=== PATIENT | male | born 1935 | race Caucasian/White ===

== ENCOUNTER 2018-07-19 11:40 | Day surgery (SDC) | payer MEDICARE | END 2018-07-19 12:55 | disposition home or self-care (01) | LOC: SDC-PAIN 11:40 | PROVIDERS: ATTEND Psychiatry & Neurology Pain Medicine | DX: Z53.09 Procedure and treatment not carried out because of other contraindication (principal) ==

== ENCOUNTER 2018-07-19 13:06 | Emergency (ER) | payer MEDICARE ==
[2018-07-19] MEDS ORDERED: Adenocard IV 6 MG/2 ML IV ONE ×2 (13:12→13:26)
[2018-07-19] MEDS ORDERED: BABY ASPIRIN 81 MG CHEW PO ONE (13:12)
[2018-07-19] MEDS ORDERED: Sodium Chloride 0.9% 1000 ML 1,000 ML IV SCH (13:15)
--- NOTE | 2018-07-19 13:18 | ERPHSYRPT ---
- History of Present Illness Time Seen by Provider: 07/19/18 13:11 Source: patient, family, old records Exam Limitations: no limitations Physician History: chele [facility] OP Surg for back pain injections when developed A fib on monitor- no symptoms-no cp or sob; not dizzy; prior hx of same; hasn;t taken meds for 2-3 days due to procedure Timing/Duration: today, hour(s) (1), sudden Activities at Onset: rest Quality: other (no symptoms) Chest Pain Radiation: no radiation Severity of Pain-Max: none Severity of Pain-Current: none Modifying Factors: Improves With: other (no meds for procedure for few days) Nitro Today/Relief: no nitro taken today Aspirin Treatment Today: no aspirin today Associated Symptoms: denies symptoms Prior Chest Pain/Cardiac Workup: cardiac cath Allergies/Adverse Reactions: No Known Drug Allergies Allergy (Unverified 07/19/18 13:22) Home Medications: Allopurinol 100 mg [Zyloprim 100 mg] 100 mg PO TID 07/19/18 [History] Apixaban [Eliquis] 5 mg PO BID 07/19/18 [History] Aspirin [Children's Aspirin] 81 mg PO DAILY 07/19/18 [History] Celecoxib [Celebrex] 200 mg PO DAILY 07/19/18 [History] Diltiazem HCl 240 mg [Cardizem CD 240 MG] 240 mg PO DAILY 07/19/18 [ History] Primidone 100 mg PO BID 07/19/18 [History] Tamsulosin HCl 0.4 mg [Flomax 0.4 MG] 0.4 mg PO DAILY 07/19/18 [History] - Review of Systems Constitutional: No Symptoms Eyes: No Symptoms Ears, Nose, & Throat: No Symptoms Respiratory: No Cough, No Dyspnea, No Wheezing Cardiac: No Chest Pain, No Edema, No Palpitations, No Syncope Abdominal/Gastrointestinal: No Abdominal Pain, No Nausea, No Vomiting, No Diarrhea Genitourinary Symptoms: No Symptoms Musculoskeletal: No Symptoms Skin: No Symptoms Neurological: No Symptoms Psychological: No Symptoms Endocrine: No Symptoms Hematologic/Lymphatic: No Symptoms Immunological/Allergic: No Symptoms - Past Medical History Pertinent Past Medical History: Yes Cardiac History: Arrhythmia, Coronary Artery Disease - Past Surgical History Past Surgical History: Yes Cardiac: Cardiac Catheterization, Cardiac Stent - Social History Smoking Status: Former smoker Exposure to second hand smoke: No Alcohol Use: None Drug Use: none Patient Lives Alone: No Significant Family History: heart disease - Nursing Vital Signs Nursing Vital Signs: Initial Vital Signs Temperature 99.0 F 07/19/18 13:08 Pulse Rate 147 H 07/19/18 13:08 Respiratory Rate 12 07/19/18 13:08 Blood Pressure 155/119 07/19/18 13:08 O2 Sat by Pulse Oximetry 95 07/19/18 13:08 Pain Scale Pain Intensity 0 - Physical Exam General Appearance: mild distress, alert Eye Exam: PERRL/EOMI, eyes nml inspection, No photophobia Ears, Nose, Throat Exam: normal ENT inspection, TMs normal, pharynx normal, moist mucous membranes Neck Exam: normal inspection, non-tender, supple, full range of motion, No meningismus, No carotid bruit, No JVD Respiratory Exam: normal breath sounds, lungs clear, airway intact, No chest tenderness, No respiratory distress, No crackles/rales, No rhonchi, No wheezing Cardiovascular Exam: normal heart sounds, normal peripheral pulses, irregular, capillary refill 2-3 sec, edema (trace), No regular rate/rhythm, No murmur, No pulse deficit Gastrointestinal/Abdomen Exam: soft, normal bowel sounds, No tenderness, No guarding, No rebound, No organomegaly Rectal Exam: deferred Back Exam: normal inspection, normal range of motion, No CVA tenderness, No vertebral tenderness, No rash Extremity Exam: normal inspection, normal range of motion, pedal edema (trace), No calf tenderness, No anastasia's sign Neurologic Exam: alert, oriented x 3, cooperative, florist II-XII nml as tested, normal mood/affect, nml cerebellar function, nml station & gait Skin Exam: normal color, warm, dry, No rash, No petechiae, No cyanosis SpO2 Interpretation: normal SpO2: 96 O2 Delivery: Room Air - Course Nursing assessment & vital signs reviewed: Yes EKG Interpreted by Me: RATE, A-fib, NORMAL AXIS, NORMAL INTERVALS, NORMAL QRS, Non-specific ST Changes, Other (a fib w RVR 136) Rhythm Strip: Rate (136), Atrial Fibrillation (w RVR 136) - Radiology Exams Chest X-ray Interpretation: Reviewed by me, Teleradiologist Report, Negative Ordered Tests: Active Orders 24 hr Category Date Time Status Marble Setter Helper STAT Care 07/19/18 13:12 Active EKG-ER Only STAT Care 07/19/18 13:12 Active IV Insertion STAT Care 07/19/18 13:12 Active Pulse Oximetry (ED) STAT Care 07/19/18 13:12 Active Re-Check Vital Signs STAT Care 07/19/18 13:12 Active CHEST 1 VIEW (PORTABLE) Stat Exams 07/19/18 13:12 Completed CBC W DIFF Stat Lab 07/19/18 13:27 Completed CMP Stat Lab 07/19/18 13:27 Completed NT PRO BNP Stat Lab 07/19/18 13:27 Completed TROPONIN Q3H Lab 07/19/18 13:27 Completed TROPONIN Q3H Lab 07/19/18 16:15 Ordered TROPONIN Q3H Lab 07/19/18 19:15 Ordered TROPONIN Q3H Lab 07/19/18 22:15 Ordered TROPONIN Q3H Lab 07/20/18 01:15 Ordered Medication Summary Generic Name Dose Route Start Last Admin Trade Name Freq PRN Reason Stop Dose Admin Sodium Chloride 1,000 mls @ 100 mls/hr 07/19/18 13:15 07/19/18 13:28 Sodium Chloride 0.9% 1000 Ml IV 08/18/18 13:14 100 mls/hr .Q10H SMOOTH Administration Diltiazem HCl 100 mls @ 5 mls/hr 07/19/18 14:04 07/19/18 14:15 Cardizem Drip 100 Mg/100 Ml D5w IV 08/18/18 14:03 5 mg/hr .Q20H PRN 5 mls/hr HEART RATE/ A-FIB Administration Protocol 5 MG/HR Discontinued Medications Generic Name Dose Route Start Last Admin Trade Name Freq PRN Reason Stop Dose Admin Adenosine 6 mg 07/19/18 13:12 07/19/18 13:29 Adenocard Iv 6 Mg/2 Ml IV 07/19/18 13:13 6 mg STAT ONE Administration Adenosine Confirm 07/19/18 13:26 Adenocard Iv 6 Mg/2 Ml Administered 07/19/18 13:27 Dose 6 mg IV .STK-MED ONE Aspirin 81 mg 07/19/18 13:12 07/19/18 13:35 Baby Aspirin 81 Mg Chew PO 07/19/18 13:13 81 mg STAT ONE Administration Aspirin Confirm 07/19/18 13:26 Baby Aspirin 81 Mg Chew Administered 07/19/18 13:27 Dose 81 mg .ROUTE .STK-MED ONE Diltiazem HCl 20 mg 07/19/18 13:34 07/19/18 13:39 Cardizem Iv 50 Mg/10 Ml IV 07/19/18 13:35 20 mg STAT ONE Administration Diltiazem HCl Confirm 07/19/18 13:34 Cardizem Iv 50 Mg/10 Ml Administered 07/19/18 13:35 Dose 50 mg IV .STK-MED ONE Lab/Rad Data: Laboratory Result Diagrams 07/19/18 13:27 07/19/18 13:27 Laboratory Results 07/19/18 07/19/18 07/19/18 Range/Units 13:27 13:27 13:27 WBC 8.0 (4.0-10.5) K/mm3 RBC 4.88 (4.1-5.6) M/mm3 Hgb 15.8 (12.5-18.0) gm/dl Hct 46.6 (42-50) % MCV 95.5 (78-100) fl MCH 32.4 H (26-32) pg MCHC 33.9 (32-36) g/dl RDW 14.1 H (11.5-14.0) % Plt Count 158 (150-450) K/mm3 MPV 10.1 H (6-9.5) fl Gran % 58.4 (36.0-66.0) % Eos # (Auto) 0.18 (0-0.5) Absolute Lymphs (auto) 2.21 (1.0-4.6) Absolute Monos (auto) 0.91 (0.0-1.3) Lymphocytes % 27.6 (24.0-44.0) % Monocytes % 11.4 (0.0-12.0) % Eosinophils % 2.3 (0.00-5.0) % Basophils % 0.3 (0.0-0.4) % Absolute Granulocytes 4.68 (1.4-6.9) Basophils # 0.02 (0-0.4) Sodium 138 (137-145) mmol/L Potassium 4.1 (3.5-5.1) mmol/L Chloride 106 (98-107) mmol/L Carbon Dioxide 22 (22-30) mmol/L Anion Gap 13.9 (5-15) MEQ/L BUN 16 (9-20) mg/dL Creatinine 0.71 (0.66-1.25) mg/dL Estimated GFR > 60.0 ML/MIN Glucose 102 (74-106) mg/dL Calcium 9.4 (8.4-10.2) mg/dL Total Bilirubin 0.70 (0.2-1.3) mg/dL AST 27 (17-59) U/L ALT 22 (0-50) U/L Alkaline Phosphatase 90 (38-126) U/L Troponin I < 0.012 (0.000-0.034) ng/mL NT-Pro-B Natriuret Pep 2480 H (0-1800) pg/mL Serum Total Protein 6.6 (6.3-8.2) g/dL Albumin 3.8 (3.5-5.0) g/dL reeviewed - Progress Progress: re-examined Air Movement: good Progress Note: 07/19/18 13:19 [facility]; discussed treatment options; will start IV; ekg AF W RVR; will medicate and monitor; no response to CSmassage 07/19/18 13:36 no response to adenocard; will start cardizem 20 mg IV slow with rechecks and monitoring 07/19/18 14:04 patient tolerated 20 mg Card push and slowed to 120s but did not convert; will start on IV drip of Cardizem and consult with his physician for disposition 07/19/18 14:05 labs ok expet elevated pbnp at 2480 Blood Culture(s) Obtained: No Antibiotics given: No Discussed with Dr.: Other (Dr Rodney Lizama [facility] accepting MD for transfer at 1455) Will see patient in: other (transfer to [facility] ED- Dr Rodney Lizama accepting MD) Counseled pt/family regarding: lab results, diagnosis, need for follow-up, rad results - Departure Departure Disposition: Transfer Clinical Impression: Atrial fibrillation with RVR Condition: Fair Critical Care Time: Yes Critical Care Time(excluding separately billable procedures): 30-74 minutes Referrals: JASMIN LUO [Primary Care Provider] -
[2018-07-19] MEDS ORDERED: Sodium Chloride 0.9% 1000 ML 1,000 ML ONE (13:26)
[2018-07-19] MEDS ORDERED: BABY ASPIRIN 81 MG CHEW ONE (13:26)
[2018-07-19 13:29] LABS: BASOPHIL % 0.3 % (0.0-0.4); Basophil (Absolute #) 0.02 (0-0.4); Eosinophil % 2.3 % (0.00-5.0); Eosinophil (Absolute #) 0.18 (0-0.5); Granulocyte Absolute (ANC) 4.68 (1.4-6.9); Granulocytes % 58.4 % (36.0-66.0); Hematocrit 46.6 % (42-50); Hemoglobin 15.8 gm/dl (12.5-18.0); Lymphocyte (Absolute #) 2.21 (1.0-4.6); Lymphocytes % 27.6 % (24.0-44.0); Mean Cell Volume 95.5 fl (78-100); Mean Corpuscular Hemoglobin 32.4 pg (26-32); Mean Corpuscular Hgb Concent. 33.9 g/dl (32-36); Mean Platelet Volume 10.1 fl (6-9.5); Monocyte (Absolute #) 0.91 (0.0-1.3); Monocytes % 11.4 % (0.0-12.0); Platelet Count 158 K/mm3 (150-450); Red Blood Count 4.88 M/mm3 (4.1-5.6); Red Cell Distribution Width 14.1 % (11.5-14.0)
[2018-07-19] MEDS ORDERED: Cardizem IV 50 MG/10 ML IV ONE ×2 (13:34)
[2018-07-19 13:54] LABS: ALBUMIN 3.8 g/dL (3.5-5.0); ALKALINE PHOSPHATASE 90 U/L (38-126); ANION GAP 13.9 MEQ/L (5-15); BLOOD UREA NITROGEN 16 mg/dL (9-20); CHLORIDE 106 mmol/L (98-107); Calcium 9.4 mg/dL (8.4-10.2); Carbon Dioxide 22 mmol/L (22-30); Creatinine 1 0.71 mg/dL (0.66-1.25); Glucose 102 mg/dL (74-106); NT PRO BNP 2480 pg/mL (0-1800); Potassium 4.1 mmol/L (3.5-5.1); SGOT/AST 27 U/L (17-59); SGPT/ALT 22 U/L (0-50); SODIUM 138 mmol/L (137-145); Total Protein 6.6 g/dL (6.3-8.2)
[2018-07-19] MEDS ORDERED: CARDIZEM DRIP 100 MG/100 ML D5W 100 ML IV PRN (14:04)
[2018-07-19] MEDS ORDERED: CARDIZEM DRIP 100 MG/100 ML D5W 100 ML IV ONE (14:06)
--- NOTE | 2018-07-19 14:06 | XRAY ---
Indication: Atrophy relation. Comparison: None Portable apical lordotic chest is clear with a few incidental calcified granulomas. 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 Bony thorax intact with mild osteopenia and degenerative changes. Impression: Nonacute chest with chronic features.
[2018-07-19 15:39] VITALS: BP 132/91; PULSE 118; O2SAT 98
== END 2018-07-19 16:38 | disposition short-term general hospital (02) ==
LOC: ED 13:06
DX: I48.91 Unspecified atrial fibrillation (principal); I25.10 Atherosclerotic heart disease of native coronary artery without angina pectoris; Z79.899 Other long term (current) drug therapy
CPT/HCPCS: 36000; 36415; 71045; 80053; 83880; 84484; 85025; 93005; 93041; 96360; 96361; 96365; 96374; 96375; 99285; J0153; A9270-GY

== ENCOUNTER 2018-09-06 07:39 | Day surgery (SDC) | payer MEDICARE ==
[2018-09-06] MEDS ORDERED: Ketamine HCl 50 MG/ML IV ONE (07:40)
[2018-09-06] MEDS ORDERED: Xylocaine-Mpf 2% 5 Ml Vial IJ ONE (07:40)
[2018-09-06] MEDS ORDERED: DIPRIVAN 200 MG/20 ML IV ONE (07:40)
[2018-09-06] MEDS ORDERED: Depo-Medrol 40 MG/ML IM ONE (07:40)
--- NOTE | 2018-09-06 10:57 | XRAY ---
Indication: Bilateral L4-S1 MBB. Intraoperative fluoroscopy was provided for 13 seconds. Single digital spot image submitted for interpretation demonstrates posterior needle tips projecting over the expected course of the left and right L4-S1 nerve roots. Correlate with intraoperative findings/report.
--- NOTE | 2018-09-06 10:57 | XRAY ---
13 seconds fluoroscopy time in surgery for bilateral L4-S1 MBB.
[2018-09-06] MEDS ORDERED: Lactated Ringers 1,000 ML IV ONE (13:29)
== END 2018-09-06 10:25 | disposition home or self-care (01) ==
LOC: SDC-PAIN 07:39
PROVIDERS: ATTEND Psychiatry & Neurology Pain Medicine
DX: M47.816 Spondylosis without myelopathy or radiculopathy, lumbar region (principal); I10 Essential (primary) hypertension; I25.10 Atherosclerotic heart disease of native coronary artery without angina pectoris
CPT/HCPCS: 64493; 64494; 72020; 77002; J1030; J2704

== ENCOUNTER 2018-10-18 09:53 | Day surgery (SDC) | payer MEDICARE ==
[2018-10-18] MEDS ORDERED: Xylocaine 1% Vial 30 ML PF IJ ONE (09:54)
[2018-10-18] MEDS ORDERED: Depo-Medrol 40 MG/ML IM ONE (09:54)
[2018-10-18] MEDS ORDERED: Marcaine 0.5% SDV 10 ML IJ ONE (09:54)
[2018-10-18] MEDS ORDERED: Ketamine HCl 50 MG/ML ONE (11:14)
[2018-10-18] MEDS ORDERED: DIPRIVAN 200 MG/20 ML IV ONE (11:14)
--- NOTE | 2018-10-18 12:30 | XRAY ---
7 seconds fluoroscopy time in surgery for bilateral L4-S1 MBB.
--- NOTE | 2018-10-18 12:39 | XRAY ---
Indication: Bilateral L4-S1 MBB. Intraoperative fluoroscopy was provided for 7 seconds. Single digital spot image submitted for interpretation demonstrates posterior needle tips projecting over the expected course of the left and right L4-S1 nerve roots. Correlate with intraoperative findings/report.
[2018-10-18] MEDS ORDERED: Lactated Ringers 1,000 ML IV ONE (13:11)
== END 2018-10-18 11:45 | disposition home or self-care (01) ==
LOC: SDC-PAIN 09:53
PROVIDERS: ATTEND Psychiatry & Neurology Pain Medicine
DX: M47.816 Spondylosis without myelopathy or radiculopathy, lumbar region (principal); I10 Essential (primary) hypertension; I48.91 Unspecified atrial fibrillation; I25.10 Atherosclerotic heart disease of native coronary artery without angina pectoris
CPT/HCPCS: 64493; 64494; 72020; 77002; J1030; J2001; J2704

== ENCOUNTER 2018-12-06 10:54 | Day surgery (SDC) | payer MEDICARE ==
[2018-12-06] MEDS ORDERED: Marcaine 0.5% SDV 10 ML IJ ONE (10:55)
[2018-12-06] MEDS ORDERED: APRESOLINE 20 MG/ML INJ IV ONE (10:55)
[2018-12-06] MEDS ORDERED: Depo-Medrol 40 MG/ML IM ONE (10:55)
[2018-12-06] MEDS ORDERED: Ketamine HCl 50 MG/ML ONE (11:46)
[2018-12-06] MEDS ORDERED: DIPRIVAN 200 MG/20 ML IV ONE (11:46)
--- NOTE | 2018-12-06 13:00 | XRAY ---
Indication: Right shoulder injection. Intraoperative fluoroscopy was provided for 30 seconds. 3 digital spot images submitted for interpretation demonstrates needle tip projecting over the right superior humeral head. Small amount of contrast injected for needle tip placement. Correlate with intraoperative findings/report.
--- NOTE | 2018-12-06 13:00 | XRAY ---
Indication: Left shoulder injection. Intraoperative fluoroscopy was provided for 26 seconds. 2 digital spot images submitted for interpretation demonstrates needle tip projecting over the left superior humeral head. Small amount of contrast injected for needle tip placement. Correlate with intraoperative findings/report.
--- NOTE | 2018-12-06 13:37 | XRAY ---
30 seconds fluoroscopy time in surgery fro right shoulder injection.
--- NOTE | 2018-12-06 13:37 | XRAY ---
26 seconds fluoroscopy time in surgery for left shoulder injection.
[2018-12-06] MEDS ORDERED: Lactated Ringers 1,000 ML IV ONE (15:53)
== END 2018-12-06 12:25 | disposition home or self-care (01) ==
LOC: SDC-PAIN 10:54
PROVIDERS: ATTEND Psychiatry & Neurology Pain Medicine
DX: M19.012 Primary osteoarthritis, left shoulder (principal); M19.011 Primary osteoarthritis, right shoulder; I10 Essential (primary) hypertension; I48.91 Unspecified atrial fibrillation; Z79.01 Long term (current) use of anticoagulants; I25.10 Atherosclerotic heart disease of native coronary artery without angina pectoris; N28.9 Disorder of kidney and ureter, unspecified; Z79.899 Other long term (current) drug therapy
CPT/HCPCS: 73030; 77002; J0360; J1030; J2704

== ENCOUNTER 2019-01-03 10:34 | Day surgery (SDC) | payer MEDICARE ==
[2019-01-03] MEDS ORDERED: Marcaine 0.5% SDV 10 ML IJ ONE (10:35)
[2019-01-03] MEDS ORDERED: Depo-Medrol 40 MG/ML IM ONE (10:35)
[2019-01-03] MEDS ORDERED: Xylocaine 1% Vial 30 ML PF IJ ONE (10:35)
[2019-01-03] MEDS ORDERED: DIPRIVAN 200 MG/20 ML IV ONE (12:22)
[2019-01-03] MEDS ORDERED: Ketamine HCl 50 MG/ML ONE (12:22)
[2019-01-03] MEDS ORDERED: Lactated Ringers 1,000 ML IV ONE (14:48)
--- NOTE | 2019-01-03 14:59 | XRAY ---
Indication: Left L4-S1 RFA. Intraoperative fluoroscopy was provided for 13 seconds. 3 digital spot images submitted for interpretation demonstrates posterior needle tips projecting over the expected course of the left L4-S1 nerve roots. Correlate with intraoperative findings/report.
--- NOTE | 2019-01-03 15:16 | XRAY ---
13 seconds of fluoroscopy was used in surgery for left L4-L5, L5-S1 RFA.
== END 2019-01-03 12:57 ==
LOC: SDC-PAIN 10:34
PROVIDERS: ATTEND Psychiatry & Neurology Pain Medicine
DX: M47.816 Spondylosis without myelopathy or radiculopathy, lumbar region (principal); I10 Essential (primary) hypertension; I48.91 Unspecified atrial fibrillation; I25.10 Atherosclerotic heart disease of native coronary artery without angina pectoris; Z79.899 Other long term (current) drug therapy; Z79.01 Long term (current) use of anticoagulants
CPT/HCPCS: 64635; 64636; 72100; 77002; 99100; J1030; J2001; J2704

== ENCOUNTER 2019-02-21 07:52 | Day surgery (SDC) | payer MEDICARE ==
[2019-02-21] MEDS ORDERED: Depo-Medrol 40 MG/ML IM ONE (07:53)
[2019-02-21] MEDS ORDERED: Xylocaine 1% Vial 30 ML PF IJ ONE (07:53)
[2019-02-21] MEDS ORDERED: Marcaine 0.5% SDV 10 ML IJ ONE (07:53)
[2019-02-21] MEDS ORDERED: Ketamine HCl 50 MG/ML ONE (08:31)
[2019-02-21] MEDS ORDERED: DIPRIVAN 200 MG/20 ML IV ONE (08:31)
--- NOTE | 2019-02-21 11:10 | XRAY ---
Indication: Right L4-S1 RFA. Intraoperative fluoroscopy was provided for 19 seconds. 4 digital spot images submitted for interpretation demonstrates posterior needle tips projecting over the expected course of the right L4-S1 nerve roots. Correlate with intraoperative findings/report.
--- NOTE | 2019-02-21 12:27 | XRAY ---
19 seconds fluoroscopy time in surgery for right L4-S1 RFA.
[2019-02-21] MEDS ORDERED: Lactated Ringers 1,000 ML IV ONE (16:15)
== END 2019-02-21 09:50 | disposition home or self-care (01) ==
LOC: SDC-PAIN 07:52
PROVIDERS: ATTEND Psychiatry & Neurology Pain Medicine
DX: M47.816 Spondylosis without myelopathy or radiculopathy, lumbar region (principal); I10 Essential (primary) hypertension; I48.91 Unspecified atrial fibrillation; Z79.01 Long term (current) use of anticoagulants; I25.10 Atherosclerotic heart disease of native coronary artery without angina pectoris; Z79.899 Other long term (current) drug therapy
CPT/HCPCS: 72100; 77002; J1030; J2001; J2704